=== PATIENT | male | born 1945 | race Hispanic/Latino ===

== ENCOUNTER 2017-08-14 05:37 | Observation (INO) | payer MEDICARE, OTHER ==
[2017-08-13 09:59] VITALS: BP 91/60
[2017-08-13 10:25] LABS: EOSINOPHILS % (AUTO) 3.5 % (0.0-8.0); HEMATOCRIT 40.1 % (42-54); LYMPHOCYTES % (AUTO) 23.2 % (21.0-51.0); MEAN CORPUSCULAR HEMOGLOBIN 32.9 pg (27.0-33.0); MEAN CORPUSCULAR HGB CONC 34.1 g/dL (32.0-36.0); MEAN CORPUSCULAR VOLUME 96.6 fL (79-99); MONOCYTES % (AUTO) 14.2 % (3.0-13.0); NEUTROPHILS % (AUTO) 58.1 % (40.0-77.0); PLATELET COUNT (AUTO) 169 K/uL (130-400); RED BLOOD CELL COUNT(AUTO) 4.15 MIL/uL (4.50-6.20); RED CELL DISTRIBUTION WIDTH 15.1 % (11.0-15.5); WHITE BLOOD COUNT (AUTO) 5.4 K/uL (4.8-10.8)
[2017-08-13 10:35] LABS: CREATININE 1.2 mg/dL (0.5-1.5); INR 1.01 (0.85-1.15); PARTIAL THROMBOPLASTIN TIME 25.9 SEC (26.3-35.5); POTASSIUM 4.6 mmol/L (3.5-5.1); PROTHROMBIN TIME 10.6 SEC (9.6-11.6)
[~2017-08-14] VITALS: Ht 167.6 cm; Wt 72.3 kg
[2017-08-14] VITALS (11 sets, daily range): BP systolic 84–137; BP diastolic 39–82
[~2017-08-14 05:37] MED LIST: ASPI-1005 PO; ATEN25TA PO; CEFAZOLIN 2GM / 50 ML 50 ML IV SCH; CEFAZOLIN SODIUM 1 GM VIAL IVP SCH; ISOS30TA6 PO; NITR0.4T50 SL; SACU1TAB PO; WATER FOR INJECTION,STERILE 20 ML VIAL IJ SCH
[2017-08-14] MEDS ORDERED: CEFAZOLIN 1GM / D5W 50ML 150 ML ONE (07:21)
[2017-08-14] MEDS ORDERED: ISOVUE-300 100 ML VIAL IV ONE (07:22)
[2017-08-14] MEDS ORDERED: BUPIVACAINE/PF 0.25% 30ML VIAL IJ ONE (07:22)
[2017-08-14] MEDS ORDERED: LIDOCAINE HCL 1% MDV 50ML VIAL ONE (07:23)
[2017-08-14] MEDS: SODIUM CHLORIDE 0.9% 1000ML 1,000 ML IV SCH ×2 (07:23→17:20)
[2017-08-14] MEDS ORDERED: MEPERIDINE-PF 50 MG/ML SYG ONE (07:23)
[2017-08-14] MEDS ORDERED: MIDAZOLAM HCL 1 MG/ML 2ML VIAL ONE ×2 (07:23→08:30)
[2017-08-14] MEDS ORDERED: ACETAMINOPHEN-CODEINE 300/30MG TAB PO PRN ×2 (09:15)
[2017-08-14] MEDS ORDERED: NITROGLYCERIN 0.4 MG SL TAB SL SCH (09:15)
[2017-08-14] MEDS ORDERED: ACETAMINOPHEN 325 MG TAB PO PRN (09:15)
[2017-08-14] MEDS: SACUBITRIL PO SCH ×2 (09:39→20:53)
[2017-08-14] MEDS: VALSARTAN PO SCH ×2 (09:39→20:53)
[2017-08-15 03:44] VITALS: BP 118/72
[2017-08-15 07:35] VITALS: BP 114/77
[2017-08-15] MEDS: SACUBITRIL PO SCH (07:44)
[2017-08-15] MEDS: VALSARTAN PO SCH (07:44)
[2017-08-15] MEDS ORDERED: ISOSORBIDE MONO 30MG TAB SR PO SCH (09:00)
[2017-08-15] MEDS ORDERED: ASPIRIN 81MG TAB.CHEW PO SCH (09:00)
[2017-08-15] MEDS ORDERED: ATENOLOL 25 MG TABLET PO SCH (09:00)
[2017-08-15 11:55] VITALS: BP 106/63
== END 2017-08-15 13:20 | disposition home or self-care (01) ==
LOC: DAH 05:37 → 2DH 05:38 → DAH 05:38
PROVIDERS: ADMIT Family Medicine; ATTEND Family Medicine
DX: I25.5 Ischemic cardiomyopathy (principal); I11.0 Hypertensive heart disease with heart failure; I50.22 Chronic systolic (congestive) heart failure; Z95.810 Presence of automatic (implantable) cardiac defibrillator
CPT/HCPCS: 33249; 36415; 71045; 80048; 85025; 85610; 85730; C1721; C1895 ×2; G0378 ×32; J0690; J2175; J2250 ×2; J3490 ×2; J7030; 99152; 99153; Q9967

== ENCOUNTER 2021-11-26 14:33 | Observation (INO) | payer MEDICARE ==
[~2021-11-26] VITALS: Ht 167.6 cm; Wt 78.5 kg
[~2021-11-26 14:33] MED LIST changes: -ATOR10 PO; -DIPH25TA51 PO; -ERGO500093 PO; -METF-526 PO; -VITAD50000 PO
[2021-11-26 15:02] LABS: BASOPHILS % (AUTO) 0.5 % (0.0-5.0); HEMATOCRIT 39.8 % (42-54); LYMPHOCYTES % (AUTO) 27.3 % (21.0-51.0); MEAN CORPUSCULAR HEMOGLOBIN 32.1 pg (27.0-33.0); MEAN CORPUSCULAR HGB CONC 31.4 g/dL (32.0-36.0); MEAN CORPUSCULAR VOLUME 102.1 fL (79-99); MONOCYTES % (AUTO) 10.8 % (3.0-13.0); NEUTROPHILS % (AUTO) 59.1 % (40.0-77.0); PLATELET COUNT (AUTO) 124 K/uL (130-400); WHITE BLOOD COUNT (AUTO) 6.4 K/uL (4.8-10.8)
[2021-11-26 15:12] LABS: INR 1.09 (0.85-1.15); PROTHROMBIN TIME 11.8 SEC (9.6-11.6)
[2021-11-26 15:13] LABS: PARTIAL THROMBOPLASTIN TIME 25.6 SEC (26.3-35.5)
[2021-11-26 15:21] LABS: ALBUMIN 3.6 g/dL (3.5-5.0); BILIRUBIN,TOTAL 1.1 mg/dL (0.2-1.0); CREATININE 1.3 mg/dL (0.5-1.5); POTASSIUM 4.4 mmol/L (3.5-5.1); TOTAL PROTEIN, SERUM 8.1 g/dL (6.0-8.3)
[2021-11-26 15:22] LABS: APPEARANCE,URINE Clear (CLEAR); BILIRUBIN,URINE Negative (NEGATIVE); COLOR,URINE Dark Yellow (YELLOW); GLUCOSE, URINE (UA) Negative (NEGATIVE); KETONES,URINE Trace mg/dL (NEGATIVE); LEUKOCYTE ESTERASE ,URINE Negative (NEGATIVE); NITRATE,URINE Negative (NEGATIVE); OCCULT BLOOD,URINE Negative (NEGATIVE); PH,URINE 5.5 (5.0-8.0); PROTEIN,URINE >=1000 mg/dL (NEGATIVE)
[2021-11-26 15:35] LABS: BACTERIA,URINE Few /HPF (None Seen); MUCUS,URINE Few LPF (None Seen); RBC,URINE 0-1 /HPF (0-1); SQUAMOUS EPITHELIAL CELL,UR Few /HPF (0-2); WBC,URINE 0-1 /HPF (0-1)
[2021-11-26] MEDS ORDERED: FUROSEMIDE 40MG VIAL IV ONE (16:30)
[2021-11-26] MEDS ORDERED: ACETAMINOPHEN 325 MG TAB PO PRN ×2 (21:30)
[2021-11-26] MEDS ORDERED: LACTULOSE 20 GM/30 ML UDCUP PO PRN (21:30)
[2021-11-26] MEDS ORDERED: TAMSULOSIN HCL 0.4 MG CAP.ER.24H PO SCH (21:30)
[2021-11-26] MEDS ORDERED: ONDANSETRON 4MG INJ IV PRN (21:30)
[2021-11-26] MEDS ORDERED: NITROGLYCERIN 0.4 MG SL TAB SL PRN (21:30)
[2021-11-27 00:50] VITALS: BP 145/77
[2021-11-27] MEDS ORDERED: VITAD50000 PO (02:53)
[2021-11-27] MEDS ORDERED: DIPH25TA51 PO (02:53)
[2021-11-27] MEDS ORDERED: ERGO500093 PO (02:53)
[2021-11-27] MEDS ORDERED: METF-526 PO (02:53)
[2021-11-27] MEDS ORDERED: ATOR10 PO (02:53)
[2021-11-27 03:15] VITALS: BP 110/53
[2021-11-27 05:38] LABS: RETICULOCYTE % (AUTO) 2.18 % (0.42-2.23)
[2021-11-27 05:52] LABS: % IRON SATURATION 18.8 % (30-44)
[2021-11-27 06:26] LABS: CARBON DIOXIDE 27 mmol/L (21-32); CHLORIDE 106 mmol/L (101-111); CHOLESTEROL 96 mg/dL (<200); CREATININE 1.3 mg/dL (0.5-1.5); GAMMA GLUTAMYL TRANSFERASE 148 U/L (5-85); GLOMERULAR FILTR. RATE CALC 57 mL/min (>60); GLUCOSE,RANDOM 108 mg/dL (70-105); HDL CHOLESTEROL 32 mg/dL (29-71); LDL DIRECT 57 mg/dL (0-99); POTASSIUM 3.9 mmol/L (3.5-5.1); SODIUM SERUM 140 mmol/L (136-145); THYROID STIMULATING HORMONE 2.85 uIU/mL (0.36-3.74); TRIGLYCERIDES 66 mg/dL (30-200); UREA NITROGEN, BLOOD 32 mg/dL (7-18)
[2021-11-27 08:15] VITALS: BP 112/68
[2021-11-27] MEDS ORDERED: FAMOTIDINE 20MG VIAL IV SCH (09:00)
[2021-11-27] MEDS ORDERED: FAMOTIDINE 20MG TAB PO SCH (09:00)
[2021-11-27] MEDS ORDERED: ASPIRIN 81MG CHEW TAB PO SCH (09:00)
[2021-11-27] MEDS ORDERED: CARVEDILOL 3.125 MG TABLET PO SCH (09:00)
[2021-11-27] MEDS ORDERED: TAMSULOSIN HCL 0.4 MG CAP.ER.24H PO SCH (09:00)
[2021-11-27] MEDS ORDERED: ENOXAPARIN SODIUM 40 MG/0.4 ML SYRINGE SQ SCH (09:00)
[2021-11-27] MEDS ORDERED: FUROSEMIDE 40MG VIAL IVP SCH (09:00)
[2021-11-27 09:49] VITALS: BP 112/68
[2021-11-27] MEDS ORDERED: NITROGLYCERIN 0.4 MG SL TAB SL SCH (11:30)
[2021-11-27 13:16] LABS: BASOPHILS % (AUTO) 0.4 % (0.0-5.0); EOSINOPHILS % (AUTO) 1.5 % (0.0-8.0); HEMATOCRIT 39.9 % (42-54); LYMPHOCYTES % (AUTO) 19.8 % (21.0-51.0); MEAN CORPUSCULAR HEMOGLOBIN 32.3 pg (27.0-33.0); MEAN CORPUSCULAR HGB CONC 32.6 g/dL (32.0-36.0); MONOCYTES % (AUTO) 6.7 % (3.0-13.0); NEUTROPHILS % (AUTO) 71.2 % (40.0-77.0); PLATELET COUNT (AUTO) 116 K/uL (130-400); RED BLOOD CELL COUNT(AUTO) 4.03 MIL/uL (4.50-6.20); RED CELL DISTRIBUTION WIDTH 13.7 % (11.0-15.5); WHITE BLOOD COUNT (AUTO) 5.2 K/uL (4.8-10.8)
[2021-11-27 13:21] LABS: HEMOGLOBIN A1C 5.9 % (4.0-6.0)
[2021-11-27] MEDS ORDERED: ATORVASTATIN 20 MG TABLET PO SCH (21:00)
[2021-11-27] MEDS ORDERED: SACUBITRIL/VALSARTAN 1 EACH TABLET PO SCH (21:00)
[2021-11-27] MEDS ORDERED: ATORVASTATIN 10 MG TABLET PO SCH (21:00)
[2021-11-28] MEDS ORDERED: ERGOCALCIFEROL (VITAMIN D2) 50,000 UNIT CAPSULE PO SCH (09:00)
== END 2021-11-27 14:00 | disposition home or self-care (01) ==
LOC: EDH 14:33 → INTOOBSV 21:06 → EDHIP 21:06 → 2AH 23:33
PROVIDERS: ADMIT Internal Medicine; ATTEND Internal Medicine
DX: I13.0 Hypertensive heart and chronic kidney disease with heart failure and stage 1 through stage 4 chronic kidney disease, or unspecified chronic kidney disease (principal); I50.21 Acute systolic (congestive) heart failure; N18.31 Chronic kidney disease, stage 3a; D63.1 Anemia in chronic kidney disease; E78.5 Hyperlipidemia, unspecified; I25.10 Atherosclerotic heart disease of native coronary artery without angina pectoris; I25.5 Ischemic cardiomyopathy; I08.1 Rheumatic disorders of both mitral and tricuspid valves; E87.70 Fluid overload, unspecified; E78.00 Pure hypercholesterolemia, unspecified; D53.9 Nutritional anemia, unspecified; Z79.82 Long term (current) use of aspirin; Z79.899 Other long term (current) drug therapy; Z95.1 Presence of aortocoronary bypass graft
CPT/HCPCS: 36415 ×3; 71045; 80048; 80053; 80061; 81001; 82306; 82550 ×4; 82607; 82728; 82746; 82977; 83036; 83540; 83550; 83735; 83874 ×3; 83880 ×3; 84443; 84484 ×5; 85025 ×3; 85045; 85378; 85610; 85730; 93005 ×4; 93306; 93356; 93970; 96372; 96374; 96375; 96376; 99285; G0378; J1650; J1940 ×2; J3490

== ENCOUNTER → 2021-11-26 | Outpatient (CLI) | payer MEDICARE ==
[~2021-11-26] MED LIST changes: +ATOR10 PO; -CEFAZOLIN 2GM / 50 ML 50 ML IV SCH; -CEFAZOLIN SODIUM 1 GM VIAL IVP SCH; +DIPH25TA51 PO; +ERGO500093 PO; -ISOS30TA6 PO; +ISOS30TA92 PO; +METF-526 PO; +VITAD50000 PO; -WATER FOR INJECTION,STERILE 20 ML VIAL IJ SCH
[2021-11-26 12:28] LABS: BASOPHILS % (AUTO) 0.6 % (0.0-5.0); EOSINOPHILS % (AUTO) 1.8 % (0.0-8.0); HEMATOCRIT 39.2 % (42-54); LYMPHOCYTES % (AUTO) 25.8 % (21.0-51.0); MEAN CORPUSCULAR HEMOGLOBIN 32.9 pg (27.0-33.0); MEAN CORPUSCULAR HGB CONC 32.4 g/dL (32.0-36.0); MEAN CORPUSCULAR VOLUME 101.6 fL (79-99); MONOCYTES % (AUTO) 11.5 % (3.0-13.0); PLATELET COUNT (AUTO) 119 K/uL (130-400); RED BLOOD CELL COUNT(AUTO) 3.86 MIL/uL (4.50-6.20); RED CELL DISTRIBUTION WIDTH 14.1 % (11.0-15.5); WHITE BLOOD COUNT (AUTO) 6.3 K/uL (4.8-10.8)
[2021-11-26 12:43] LABS: CREATININE 1.2 mg/dL (0.5-1.5); MAGNESIUM 1.8 mg/dL (1.80-2.40); POTASSIUM 4.3 mmol/L (3.5-5.1)
[2021-11-26 12:53] LABS: B-TYPE NATRIURETIC PEPTIDE 1030 pg/mL (0-100)
== END | disposition home or self-care (01) ==
LOC: LAB 11:11
PROVIDERS: ATTEND Physician Assistant
DX: I25.10 Atherosclerotic heart disease of native coronary artery without angina pectoris (principal); E78.5 Hyperlipidemia, unspecified
CPT/HCPCS: 36415; 80048; 83735; 83880; 84484; 85025; 85378

== ENCOUNTER → 2021-12-05 | Outpatient (CLI) | payer MEDICARE ==
[~2021-12-05] MED LIST changes: -ATEN25TA PO; +ATOR10 PO; +ERGO500093 PO; -ISOS30TA92 PO; +METF-526 PO; +VITAD50000 PO
[2021-12-05 12:48] LABS: CREATININE 1.3 mg/dL (0.5-1.5); POTASSIUM 3.8 mmol/L (3.5-5.1)
== END | disposition home or self-care (01) ==
LOC: LAB 08:44
PROVIDERS: ATTEND Physician Assistant
DX: I50.22 Chronic systolic (congestive) heart failure (principal); I25.5 Ischemic cardiomyopathy
CPT/HCPCS: 36415; 80048; 83880